=== PATIENT | female | born 1990 | race Caucasian/White ===

== ENCOUNTER 2018-06-05 06:23 | Day surgery (SDC) | payer BC ==
[2018-06-05 06:53] VITALS: BMI 19.9
[2018-06-05 07:15] VITALS: O2SAT 100
[2018-06-05] MEDS ORDERED: Lactated Ringer's 500 ML IV ONE ×2 (08:30)
[2018-06-05] MEDS ORDERED: Propofol 10 mg/ml Inj (20 ML) ONE (08:37)
[2018-06-05 10:34] VITALS: TEMP 97.4
[2018-06-05 10:43] VITALS: BP 118/68; PULSE 75; RESP 18
== END 2018-06-05 10:15 | disposition home or self-care (01) ==
LOC: C.ENDO 06:23 → EDSTATUS 08:00 → C.ENDO 10:15
PROVIDERS: ATTEND Internal Medicine Gastroenterology
DX: K21.0 Gastro-esophageal reflux disease with esophagitis (principal); K29.50 Unspecified chronic gastritis without bleeding
CPT/HCPCS: 43239; 84703; 88305; J2704; J7120